=== PATIENT | male | born 1945 | race Caucasian/White ===

== ENCOUNTER → 2018-10-22 | Outpatient (CLI) | payer MEDICARE ==
[~2018-10-22] MED LIST: ALDACTONE25 MG PO; CITALOPRAM HBR40 MG PO; COUMADIN5 MG PO; DIVALPROEX SOD250 MG PO; FUROSEMIDE40 MG PO; GABAPENTIN100 MG PO; GEMFIBROZIL600 MG PO; LAMOTRIGINE25 M2 PO; LASIX20 MG PO; LEVOTHYROXINE25 MCG PO; LEVOTHYROXINE75 MCG PO; LISINOPRIL5 MG PO; LOSARTAN POTASS25 MG PO; LOVASTATIN40 MG PO; LOVENOX80 MG/0.8 SC; METOLAZONE5 MG PO; METOPROLOL TART25 MG PO; PANTOPRAZOLE SO40 MG PO; PROTONIX20 MG PO; SPIRONOLACTONE25 MG PO; TAMSULOSIN HCL0.4 MG PO; TOPROL XL100 MG PO; WARFARIN SODIUM1 MG PO; WARFARIN SODIUM3 MG PO; WARFARIN SODIUM4 MG PO
--- NOTE | 2018-10-22 14:20 | Diagnostic Imaging Report ---
Exam: Right shoulder 2 views History: Pain Comparison: None. Findings: No fracture or malalignment. Mild acromioclavicular arthrosis. No abnormal soft tissue calcification or soft tissue defect. Partially visualized cardiac device. Impression: No acute osseous abnormality Mild acromioclavicular arthrosis. Signed by: Dr. Madhu Woodruff M.D. on 10/22/2018 2:17 PM
--- NOTE | 2018-10-22 14:28 | Diagnostic Imaging Report ---
Exam: Cervical spine AP lateral oblique History: Neck pain Comparison: None. Findings: No fracture or malalignment. Degenerative disc disease most prominent at C5-C6. Multilevel facet and uncovertebral hypertrophy. No abnormal soft tissue calcification or soft tissue defect. 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 Madhu Woodruff M.D. on 10/22/2018 2:24 PM
== END ==
LOC: RAD 12:45
PROVIDERS: ATTEND Family Medicine
DX: M54.12 Radiculopathy, cervical region (principal); M25.511 Pain in right shoulder
CPT/HCPCS: 72050

== ENCOUNTER 2022-01-23 13:19 | Emergency (ER) | payer MEDICARE ==
[~2022-01-23] VITALS: Ht 175.3 cm; Wt 89.4 kg
[2022-01-23 14:18] LABS: BASOPHILS # (AUTO) 0.1 (0.0-0.1); BASOPHILS % 1.4 % (0.0-1.0); EOSINOPHILS # (AUTO) 0.1 (0.0-0.4); EOSINOPHILS % 1.4 % (0.0-6.0); HEMATOCRIT 45.8 % (38.2-49.6); HEMOGLOBIN 14.8 g/dL (14.0-18.0); LYMPHOCYTES # (AUTO) 1.3 (1.0-3.2); LYMPHOCYTES % 25.8 % (18.0-39.1); MEAN CORPUSCULAR HGB CONC 32.3 g/dL (31-35); MEAN CORPUSCULAR VOLUME 92.9 fL (81-99); MONOCYTES # (AUTO) 0.4 (0.2-0.8); MONOCYTES % 8.7 % (4.4-11.3); NEUTROPHILS # (AUTO) 3.2 (2.1-6.9); NEUTROPHILS % 62.5 % (38.7-80.0); PLATELET COUNT 161 x10e3/uL (140-360); RED BLOOD COUNT 4.93 x10e6/uL (4.3-5.7); RED CELL DISTRIBUTION WIDTH 15.9 % (11.7-14.4)
[2022-01-23 14:25] LABS: INR 3.13; PROTHROMBIN TIME 34.4 seconds (11.9-14.5)
[2022-01-23 14:26] LABS: PARTIAL THROMBOPLASTIN TIME 46.8 seconds (23.8-35.5)
[2022-01-23 14:37] LABS: ALBUMIN 3.9 g/dL (3.5-5.0); ALBUMIN/GLOBULIN RATIO 1.2 (0.8-2.0); ANION GAP 15.9 mmol/L (8-16); CALCIUM 8.9 mg/dL (8.4-10.2); CREATININE, SERUM 1.31 mg/dL (0.72-1.25); POTASSIUM 3.9 mmol/L (3.5-5.1)
[2022-01-23] MEDS ORDERED: FUROSEMIDE INJ 10 MG/ML 4 ML VIAL IV ONE (14:45)
== END 2022-01-23 16:07 | disposition home or self-care (01) ==
LOC: ER 13:31
DX: I50.9 Heart failure, unspecified (principal); N18.9 Chronic kidney disease, unspecified; R06.02 Shortness of breath; I10 Essential (primary) hypertension; E78.5 Hyperlipidemia, unspecified; K21.9 Gastro-esophageal reflux disease without esophagitis; Z20.822 Contact with and (suspected) exposure to COVID-19; Z95.810 Presence of automatic (implantable) cardiac defibrillator
CPT/HCPCS: 36415; 71045; 80053; 82550; 82553; 83880; 84484; 85025; 85379; 85610; 85730; 93005; 99284; J1940; U0002

== ENCOUNTER 2022-02-01 10:00 | Inpatient (IN) | payer MEDICARE ==
[~2022-02-01] VITALS: Ht 175.3 cm; Wt 93.1 kg
[2022-02-01 10:37] LABS: BASOPHILS # (AUTO) 0.1 (0.0-0.1); EOSINOPHILS # (AUTO) 0.1 (0.0-0.4); EOSINOPHILS % 1.8 % (0.0-6.0); HEMOGLOBIN 16.3 g/dL (14.0-18.0); LYMPHOCYTES # (AUTO) 1.7 (1.0-3.2); LYMPHOCYTES % 25.9 % (18.0-39.1); MEAN CORPUSCULAR HEMOGLOBIN 29.8 pg (28-32); MEAN CORPUSCULAR VOLUME 93.2 fL (81-99); MONOCYTES # (AUTO) 0.6 (0.2-0.8); MONOCYTES % 9.1 % (4.4-11.3); NEUTROPHILS # (AUTO) 4.2 (2.1-6.9); NEUTROPHILS % 62.1 % (38.7-80.0); PLATELET COUNT 208 x10e3/uL (140-360); RED BLOOD COUNT 5.47 x10e6/uL (4.3-5.7); RED CELL DISTRIBUTION WIDTH 15.9 % (11.7-14.4)
[2022-02-01] MEDS ORDERED: MAGNESIUM SULFATE 2GM/50ML 50 ML IV ONE (11:00)
[2022-02-01 11:01] LABS: ALBUMIN/GLOBULIN RATIO 1.1 (0.8-2.0); ANION GAP 18.4 mmol/L (8-16); CALCIUM 9.1 mg/dL (8.4-10.2); CREATININE, SERUM 1.35 mg/dL (0.72-1.25); POTASSIUM 4.4 mmol/L (3.5-5.1)
[2022-02-01] MEDS ORDERED: ASPIRIN 81 MG CHEW TAB PO ONE (13:30)
[2022-02-01] MEDS ORDERED: ATORVASTATIN CA40 MG PO (15:27)
[2022-02-01] MEDS ORDERED: FUROSEMIDE20 MG PO (15:27)
[2022-02-01] MEDS ORDERED: CARVEDILOL3.125 MG PO (15:27)
[2022-02-01] MEDS ORDERED: ENTRESTO 24 MG1 EACH PO (15:27)
[2022-02-01] MEDS ORDERED: WARFARIN SODIUM3 MG PO (15:27)
[2022-02-01] MEDS ORDERED: LEVOTHYROXINE150 MCG PO (15:27)
[2022-02-01] MEDS ORDERED: FLOMAX0.4 MG PO (15:27)
[2022-02-01] MEDS ORDERED: ONDANSETRON HCL INJ 2MG/ML 2ML 2 MG/ML VIAL IV PRN (15:45)
[2022-02-01] MEDS ORDERED: ACETAMINOPHEN 325 MG TAB PO PRN (15:45)
[2022-02-01 15:51] VITALS: BP 117/98
[2022-02-01 16:00] VITALS: BP 117/98
[2022-02-01 16:22] VITALS: BP 117/98
[2022-02-01] MEDS ORDERED: CITALOPRAM HBR20 MG PO (16:27)
[2022-02-01] MEDS ORDERED: GEMFIBROZIL600 MG PO (16:27)
[2022-02-01 20:00] VITALS: BP 94/83
[2022-02-01 20:15] VITALS: BP 94/83
[2022-02-01] MEDS: VALSARTAN/SACUBITRIL 24MG/26MG 1 EA TAB PO SCH (21:12)
[2022-02-01] MEDS: FUROSEMIDE INJ 10 MG/ML 4 ML VIAL IV SCH (21:12)
[2022-02-01] MEDS: ATORVASTATIN 40 MG TAB PO SCH (21:12)
[2022-02-02] VITALS (7 sets, daily range): BP systolic 101–114; BP diastolic 69–83
[2022-02-02 05:55] LABS: HEMATOCRIT 47.2 % (38.2-49.6); MEAN CORPUSCULAR HEMOGLOBIN 29.3 pg (28-32); MEAN CORPUSCULAR HGB CONC 31.8 g/dL (31-35); MEAN CORPUSCULAR VOLUME 92.2 fL (81-99); NEUTROPHILS % 54.5 % (38.7-80.0); PLATELET COUNT 188 x10e3/uL (140-360); RED BLOOD COUNT 5.12 x10e6/uL (4.3-5.7); RED CELL DISTRIBUTION WIDTH 15.4 % (11.7-14.4)
[2022-02-02 05:56] LABS: BASOPHILS # (AUTO) 0.1 (0.0-0.1); BASOPHILS % 1.3 % (0.0-1.0); EOSINOPHILS # (AUTO) 0.2 (0.0-0.4); EOSINOPHILS % 2.7 % (0.0-6.0); LYMPHOCYTES # (AUTO) 1.8 (1.0-3.2); LYMPHOCYTES % 31.3 % (18.0-39.1); MONOCYTES # (AUTO) 0.6 (0.2-0.8); MONOCYTES % 9.8 % (4.4-11.3); NEUTROPHILS # (AUTO) 3.1 (2.1-6.9)
[2022-02-02 06:13] LABS: INR 3.73; PROTHROMBIN TIME 39.4 seconds (11.9-14.5)
[2022-02-02 06:31] LABS: ANION GAP 14.6 mmol/L (8-16); CALCIUM 8.8 mg/dL (8.4-10.2); CREATININE, SERUM 1.34 mg/dL (0.72-1.25); POTASSIUM 3.6 mmol/L (3.5-5.1)
[2022-02-02 06:48] LABS: ALBUMIN 3.8 g/dL (3.5-5.0); BILIRUBIN,DIRECT 0.9 mg/dL (0.0-0.5); CHOL/HDL RATIO 3.5 (3.9-4.7); MAGNESIUM 2.1 MG/DL (1.3-2.1)
[2022-02-02 09:34] LABS: INR 3.49; PROTHROMBIN TIME 37.4 seconds (11.9-14.5)
[2022-02-02] MEDS: VALSARTAN/SACUBITRIL 24MG/26MG 1 EA TAB PO SCH ×2 (09:52→22:28)
[2022-02-02] MEDS: CARVEDILOL 3.125 MG TAB PO SCH ×2 (09:52→17:54)
[2022-02-02] MEDS: FUROSEMIDE INJ 10 MG/ML 4 ML VIAL IV SCH ×2 (09:52→22:28)
[2022-02-02] MEDS ORDERED: ONDANSETRON HCL 4 MG ORAL DISINTEGRATING TAB PO PRN ×2 (14:30)
[2022-02-02] MEDS: ATORVASTATIN 40 MG TAB PO SCH (22:28)
[2022-02-03] VITALS: BP 100/82
[2022-02-03 06:07] VITALS: BP 111/83
[2022-02-03 08:22] VITALS: BP 111/83
[2022-02-03] MEDS: VALSARTAN/SACUBITRIL 24MG/26MG 1 EA TAB PO SCH (08:38)
[2022-02-03] MEDS: FUROSEMIDE INJ 10 MG/ML 4 ML VIAL IV SCH (08:38)
[2022-02-03] MEDS: CARVEDILOL 3.125 MG TAB PO SCH (08:39)
[2022-02-03 08:43] VITALS: BP 114/90
[2022-02-03 08:44] LABS: INR 2.07; PROTHROMBIN TIME 24.9 seconds (11.9-14.5)
[2022-02-03 08:49] LABS: ANION GAP 17.4 mmol/L (8-16); CALCIUM 9.3 mg/dL (8.4-10.2); CREATININE, SERUM 1.26 mg/dL (0.72-1.25); POTASSIUM 3.4 mmol/L (3.5-5.1)
[2022-02-03] MEDS ORDERED: POTASSIUM CHLORIDE 20 MEQ TAB CR PO ONE (10:43)
[2022-02-03] MEDS ORDERED: WARFARIN SOD 3 MG TAB PO SCH ×2 (10:45→17:00)
[2022-02-03 11:45] VITALS: BP 92/71
== END 2022-02-03 14:57 | disposition home or self-care (01) | DRG 291 ==
LOC: ER 10:16 → ERHOLD 13:26 → MED/SURG2 15:23 → OBSVTOIN 02-02 08:57
PROVIDERS: ADMIT Internal Medicine; ATTEND Internal Medicine
DX: I13.0 Hypertensive heart and chronic kidney disease with heart failure and stage 1 through stage 4 chronic kidney disease, or unspecified chronic kidney disease (principal); I50.23 Acute on chronic systolic (congestive) heart failure; D68.8 Other specified coagulation defects; N18.30 Chronic kidney disease, stage 3 unspecified; I48.91 Unspecified atrial fibrillation; Z79.01 Long term (current) use of anticoagulants; I42.8 Other cardiomyopathies; E78.2 Mixed hyperlipidemia; Z88.1 Allergy status to other antibiotic agents; Z88.2 Allergy status to sulfonamides; Z20.822 Contact with and (suspected) exposure to COVID-19
CPT/HCPCS: 36415; 71046; 80048; 80053; 80061; 80076; 83735; 83880; 84484; 85025; 85610; 93005; 94799; 99284; G0378; J1940; J3475; U0002

== ENCOUNTER 2022-03-23 10:15 | Observation (INO) | payer MEDICARE ==
[~2022-03-23] VITALS: Ht 175.3 cm; Wt 93.9 kg
[~2022-03-23 10:15] MED LIST changes: +ATORVASTATIN CA40 MG PO; +CARVEDILOL3.125 MG PO; +CITALOPRAM HBR20 MG PO; +ENTRESTO 24 MG1 EACH PO; +FLOMAX0.4 MG PO; +FUROSEMIDE20 MG PO; +LEVOTHYROXINE150 MCG PO
[2022-03-23] MEDS ORDERED: FUROSEMIDE INJ 10 MG/ML 4 ML VIAL IV ONE (10:30)
[2022-03-23] MEDS ORDERED: ASPIRIN 325 MG TAB PO ONE (10:30)
[2022-03-23 10:42] LABS: BASOPHILS # (AUTO) 0.1 (0.0-0.1); BASOPHILS % 1.3 % (0.0-1.0); EOSINOPHILS # (AUTO) 0.1 (0.0-0.4); EOSINOPHILS % 2.3 % (0.0-6.0); HEMATOCRIT 49.7 % (38.2-49.6); HEMOGLOBIN 15.7 g/dL (14.0-18.0); LYMPHOCYTES # (AUTO) 1.5 (1.0-3.2); LYMPHOCYTES % 24.5 % (18.0-39.1); MEAN CORPUSCULAR HEMOGLOBIN 29.3 pg (28-32); MEAN CORPUSCULAR HGB CONC 31.6 g/dL (31-35); MEAN CORPUSCULAR VOLUME 92.9 fL (81-99); MONOCYTES # (AUTO) 0.5 (0.2-0.8); MONOCYTES % 8.4 % (4.4-11.3); NEUTROPHILS # (AUTO) 3.9 (2.1-6.9); NEUTROPHILS % 63.2 % (38.7-80.0); PLATELET COUNT 186 x10e3/uL (140-360); RED BLOOD COUNT 5.35 x10e6/uL (4.3-5.7); RED CELL DISTRIBUTION WIDTH 16.5 % (11.7-14.4)
[2022-03-23 11:04] LABS: INR 1.93; PROTHROMBIN TIME 23.6 seconds (11.9-14.5)
[2022-03-23 11:05] LABS: PARTIAL THROMBOPLASTIN TIME 41.1 seconds (23.8-35.5)
[2022-03-23 11:06] LABS: ALBUMIN 3.5 g/dL (3.5-5.0); ANION GAP 16.7 mmol/L (8-16); CALCIUM 8.7 mg/dL (8.4-10.2); CREATININE, SERUM 1.18 mg/dL (0.72-1.25); POTASSIUM 3.7 mmol/L (3.5-5.1)
[2022-03-23 11:24] LABS: CREATINE KINASE MB 2.4 ng/mL (0-5.0)
[2022-03-23] MEDS ORDERED: ONDANSETRON HCL INJ 2MG/ML 2ML 2 MG/ML VIAL IV PRN (13:00)
[2022-03-23 14:29] LABS: CLARITY,URINE SL CLOUDY (CLEAR); COLOR,URINE YELLOW (YELLOW); KETONES,URINE TRACE (NEGATIVE); LEUKOCYTE ESTERASE ,URINE NEGATIVE (NEGATIVE); NITRITE,URINE NEGATIVE (NEGATIVE); PROTEIN,URINE DIPSTICK 2+ (NEGATIVE); URINE UROBILINOGEN 1 mg/dL (0.2 - 1)
[2022-03-23 14:48] LABS: BACTERIA,URINE MANY /HPF; EPITHELIAL CELLS,URINE FEW /LPF; RBC,URINE 0-5 /HPF (0-5); TRANSITIONAL EPI CELLS,URINE FEW
[2022-03-23 14:49] LABS: MUCUS,URINE MANY (RARE)
[2022-03-23 15:20] VITALS: BP 101/62
[2022-03-23 16:41] VITALS: BP 101/62
[2022-03-23 16:47] VITALS: BP 101/62
[2022-03-23 20:00] VITALS: BP 98/70
[2022-03-23] MEDS: VALSARTAN/SACUBITRIL 24MG/26MG 1 EA TAB PO SCH (22:04)
[2022-03-23] MEDS: ATORVASTATIN 40 MG TAB PO SCH (22:05)
[2022-03-24] VITALS (8 sets, daily range): BP systolic 91–119; BP diastolic 68–86
[2022-03-24] MEDS: LEVOTHYROXINE SODIUM 25 MCG TABLET PO SCH (05:32)
[2022-03-24] MEDS: LEVOTHYROXINE SODIUM 125 MCG TAB PO SCH (05:32)
[2022-03-24] MEDS: FUROSEMIDE INJ 10 MG/ML 2 ML VIAL IV SCH ×2 (05:32→17:28)
[2022-03-24 06:21] LABS: BASOPHILS # (AUTO) 0.1 (0.0-0.1); BASOPHILS % 1.4 % (0.0-1.0); EOSINOPHILS # (AUTO) 0.3 (0.0-0.4); HEMATOCRIT 45.1 % (38.2-49.6); HEMOGLOBIN 14.4 g/dL (14.0-18.0); LYMPHOCYTES # (AUTO) 1.3 (1.0-3.2); MEAN CORPUSCULAR HEMOGLOBIN 29.4 pg (28-32); MEAN CORPUSCULAR HGB CONC 31.9 g/dL (31-35); MEAN CORPUSCULAR VOLUME 92.2 fL (81-99); MONOCYTES # (AUTO) 0.4 (0.2-0.8); MONOCYTES % 8.5 % (4.4-11.3); NEUTROPHILS # (AUTO) 3.1 (2.1-6.9); NEUTROPHILS % 59.9 % (38.7-80.0); PLATELET COUNT 168 x10e3/uL (140-360); RED BLOOD COUNT 4.89 x10e6/uL (4.3-5.7); RED CELL DISTRIBUTION WIDTH 16.4 % (11.7-14.4)
[2022-03-24 06:24] LABS: INR 2.11; PROTHROMBIN TIME 25.3 seconds (11.9-14.5)
[2022-03-24 06:32] LABS: ANION GAP 16.2 mmol/L (8-16); CALCIUM 8.2 mg/dL (8.4-10.2); CREATININE, SERUM 1.02 mg/dL (0.72-1.25); POTASSIUM 3.2 mmol/L (3.5-5.1)
[2022-03-24 07:16] LABS: ALBUMIN 3.2 g/dL (3.5-5.0); BILIRUBIN,DIRECT 0.9 mg/dL (0.0-0.5)
[2022-03-24] MEDS ORDERED: FAMOTIDINE 20 MG TAB PO SCH (07:30)
[2022-03-24] MEDS: TAMSULOSIN HCL 0.4 MG CAP PO SCH (09:00)
[2022-03-24] MEDS: VALSARTAN/SACUBITRIL 24MG/26MG 1 EA TAB PO SCH ×2 (12:00→19:30)
[2022-03-24] MEDS: CARVEDILOL 12.5 MG TAB PO SCH ×2 (12:00→17:00)
[2022-03-24] MEDS: CITALOPRAM HYDROBROMIDE 20 MG TAB PO SCH (12:00)
[2022-03-24] MEDS ORDERED: POTASSIUM CHLORIDE 20 MEQ TAB CR PO NR (13:00)
[2022-03-24] MEDS ORDERED: WARFARIN SOD 3 MG TAB PO SCH (17:00)
[2022-03-24] MEDS: ATORVASTATIN 40 MG TAB PO SCH (20:58)
[2022-03-25] VITALS: BP 100/60
[2022-03-25 04:00] VITALS: BP 110/84
[2022-03-25] MEDS: LEVOTHYROXINE SODIUM 25 MCG TABLET PO SCH (05:54)
[2022-03-25] MEDS: FUROSEMIDE INJ 10 MG/ML 2 ML VIAL IV SCH (05:54)
[2022-03-25] MEDS: LEVOTHYROXINE SODIUM 125 MCG TAB PO SCH (05:54)
[2022-03-25 05:56] LABS: BASOPHILS # (AUTO) 0.1 (0.0-0.1); BASOPHILS % 1.6 % (0.0-1.0); EOSINOPHILS # (AUTO) 0.3 (0.0-0.4); EOSINOPHILS % 5.1 % (0.0-6.0); HEMATOCRIT 45.8 % (38.2-49.6); HEMOGLOBIN 14.6 g/dL (14.0-18.0); LYMPHOCYTES # (AUTO) 1.4 (1.0-3.2); LYMPHOCYTES % 28.4 % (18.0-39.1); MEAN CORPUSCULAR HEMOGLOBIN 29.3 pg (28-32); MEAN CORPUSCULAR HGB CONC 31.9 g/dL (31-35); MONOCYTES # (AUTO) 0.4 (0.2-0.8); MONOCYTES % 8.6 % (4.4-11.3); NEUTROPHILS # (AUTO) 2.8 (2.1-6.9); NEUTROPHILS % 56.1 % (38.7-80.0); PLATELET COUNT 162 x10e3/uL (140-360); RED BLOOD COUNT 4.98 x10e6/uL (4.3-5.7); RED CELL DISTRIBUTION WIDTH 16.2 % (11.7-14.4)
[2022-03-25 06:14] LABS: ANION GAP 14.6 mmol/L (8-16); CALCIUM 8.6 mg/dL (8.4-10.2); CREATININE, SERUM 1.13 mg/dL (0.72-1.25); POTASSIUM 3.6 mmol/L (3.5-5.1)
[2022-03-25 07:43] VITALS: BP_SYST 105; BP_SYST 110; BP_DIAS 76; BP_DIAS 84
[2022-03-25] MEDS: TAMSULOSIN HCL 0.4 MG CAP PO SCH (08:44)
[2022-03-25] MEDS: CITALOPRAM HYDROBROMIDE 20 MG TAB PO SCH (08:44)
[2022-03-25] MEDS ORDERED: PANTOPRAZOLE SOD 40 MG TABEC PO ONE (09:00)
[2022-03-25] MEDS ORDERED: LASIX20 MG PO (11:06)
[2022-03-25] MEDS ORDERED: COREG12.5 MG PO (11:06)
[2022-03-25 11:54] VITALS: BP 99/65
== END 2022-03-25 13:15 | disposition home or self-care (01) ==
LOC: ER 10:18 → ERHOLD 12:58 → MED/SURG2 15:13
PROVIDERS: ADMIT Internal Medicine; ATTEND Internal Medicine
DX: I13.0 Hypertensive heart and chronic kidney disease with heart failure and stage 1 through stage 4 chronic kidney disease, or unspecified chronic kidney disease (principal); I50.23 Acute on chronic systolic (congestive) heart failure; N18.30 Chronic kidney disease, stage 3 unspecified; E78.5 Hyperlipidemia, unspecified; I48.20 Chronic atrial fibrillation, unspecified; K21.9 Gastro-esophageal reflux disease without esophagitis; N39.0 Urinary tract infection, site not specified; E66.9 Obesity, unspecified; Z68.30 Body mass index [BMI] 30.0-30.9, adult; I42.8 Other cardiomyopathies; E87.6 Hypokalemia; I71.4 Abdominal aortic aneurysm, without rupture; Z95.810 Presence of automatic (implantable) cardiac defibrillator; Z88.2 Allergy status to sulfonamides; Z88.8 Allergy status to other drugs, medicaments and biological substances; Z20.822 Contact with and (suspected) exposure to COVID-19; E80.6 Other disorders of bilirubin metabolism; Z79.01 Long term (current) use of anticoagulants
CPT/HCPCS: 36415 ×3; 71045; 74018; 74176; 80048 ×2; 80053; 80076; 81001; 82550; 82553; 83880; 84484; 85025 ×3; 85610 ×2; 85730; 94799; 97116; 97161; 99284; G0378 ×3; J1940 ×3; S0164; U0002

== ENCOUNTER 2022-05-13 14:49 | Emergency (ER) | payer MEDICARE ==
[~2022-05-13] VITALS: Ht 175.3 cm; Wt 93.9 kg
[~2022-05-13 14:49] MED LIST changes: +COREG12.5 MG PO
[2022-05-13] MEDS ORDERED: ASPIRIN 81 MG CHEW TAB PO ONE (15:30)
[2022-05-13 15:50] LABS: BASOPHILS # (AUTO) 0.1 (0.0-0.1); BASOPHILS % 1.2 % (0.0-1.0); EOSINOPHILS # (AUTO) 0.1 (0.0-0.4); EOSINOPHILS % 1.6 % (0.0-6.0); LYMPHOCYTES % 23.1 % (18.0-39.1); MEAN CORPUSCULAR HEMOGLOBIN 28.7 pg (28-32); MEAN CORPUSCULAR HGB CONC 31.8 g/dL (31-35); MEAN CORPUSCULAR VOLUME 90.2 fL (81-99); MONOCYTES # (AUTO) 0.4 (0.2-0.8); MONOCYTES % 8.6 % (4.4-11.3); NEUTROPHILS # (AUTO) 2.8 (2.1-6.9); NEUTROPHILS % 65.3 % (38.7-80.0); PLATELET COUNT 157 x10e3/uL (140-360); RED BLOOD COUNT 4.88 x10e6/uL (4.3-5.7); RED CELL DISTRIBUTION WIDTH 18.4 % (11.7-14.4)
[2022-05-13 16:05] LABS: INR 2.56; PROTHROMBIN TIME 29.4 seconds (11.9-14.5)
[2022-05-13 16:06] LABS: ALBUMIN 3.1 g/dL (3.5-5.0); ALBUMIN/GLOBULIN RATIO 0.9 (0.8-2.0); ANION GAP 15.2 mmol/L (8-16); CREATININE, SERUM 1.09 mg/dL (0.72-1.25); PARTIAL THROMBOPLASTIN TIME 45.5 seconds (23.8-35.5); POTASSIUM 3.2 mmol/L (3.5-5.1)
[2022-05-13 16:12] LABS: CREATINE KINASE MB 2.4 ng/mL (0-5.0)
[2022-05-13 17:38] LABS: CLARITY,URINE CLEAR (CLEAR); COLOR,URINE YELLOW (YELLOW); KETONES,URINE NEGATIVE (NEGATIVE); LEUKOCYTE ESTERASE ,URINE NEGATIVE (NEGATIVE); NITRITE,URINE NEGATIVE (NEGATIVE); PROTEIN,URINE DIPSTICK TRACE (NEGATIVE); URINE UROBILINOGEN 2 mg/dL (0.2 - 1)
[2022-05-13 17:43] LABS: WBC,URINE (MAN) 0-5 /HPF (0-5)
[2022-05-13 17:44] LABS: BACTERIA,URINE MODERATE /HPF; EPITHELIAL CELLS,URINE FEW /LPF; MUCUS,URINE MANY (RARE)
== END 2022-05-13 18:36 | disposition home or self-care (01) ==
LOC: ER 15:12
DX: R60.9 Edema, unspecified (principal); I50.9 Heart failure, unspecified; I10 Essential (primary) hypertension; E78.5 Hyperlipidemia, unspecified; I48.91 Unspecified atrial fibrillation; K21.9 Gastro-esophageal reflux disease without esophagitis; R94.31 Abnormal electrocardiogram [ECG] [EKG]; Z95.810 Presence of automatic (implantable) cardiac defibrillator; Z20.822 Contact with and (suspected) exposure to COVID-19
CPT/HCPCS: 36415; 71045; 80053; 81001; 82550; 82553; 83880; 84484; 85025; 85610; 85730; 93005; 99284; U0002

== ENCOUNTER 2022-06-05 12:06 | Emergency (ER) | payer MEDICARE ==
[~2022-06-05] VITALS: Ht 175.3 cm; Wt 93.9 kg
== END 2022-06-05 14:14 | disposition home or self-care (01) ==
LOC: ER 13:16
DX: R14.0 Abdominal distension (gaseous) (principal); I10 Essential (primary) hypertension; I48.91 Unspecified atrial fibrillation; I50.9 Heart failure, unspecified; K21.9 Gastro-esophageal reflux disease without esophagitis; E78.5 Hyperlipidemia, unspecified; R94.31 Abnormal electrocardiogram [ECG] [EKG]; Z95.810 Presence of automatic (implantable) cardiac defibrillator
CPT/HCPCS: 93005; 99282

== ENCOUNTER 2022-11-21 14:16 | Emergency (ER) | payer MEDICARE ==
[~2022-11-21] VITALS: Ht 175.3 cm; Wt 93.9 kg
== END 2022-11-21 15:13 | disposition home or self-care (01) ==
LOC: ER 14:22
DX: I95.9 Hypotension, unspecified (principal); I10 Essential (primary) hypertension; I50.9 Heart failure, unspecified; E78.5 Hyperlipidemia, unspecified; I48.91 Unspecified atrial fibrillation; K21.9 Gastro-esophageal reflux disease without esophagitis; Z95.810 Presence of automatic (implantable) cardiac defibrillator
CPT/HCPCS: 99283